=== PATIENT | female | born 1975 | race Caucasian/White ===

== ENCOUNTER → 2016-12-01 | Outpatient (CLI) | payer OTHER | LOC: FIMAGING 15:47 | DX: Z12.31 Encounter for screening mammogram for malignant neoplasm of breast (principal) | CPT/HCPCS: G0202 ==

== ENCOUNTER → 2017-05-27 | Outpatient (CLI) | payer OTHER ==
[~2017-05-27] MED LIST: GADOBUTROL 10 ML VIAL IVP ONE
== END ==
LOC: FIMAGING 11:01
PROVIDERS: ATTEND Internal Medicine
DX: E22.1 Hyperprolactinemia (principal); N91.2 Amenorrhea, unspecified
CPT/HCPCS: A9585

== ENCOUNTER 2018-03-14 11:58 | Emergency (ER) | payer OTHER ==
--- NOTE | 2018-03-14 12:16 | CPEKG ---
Heart Rate: 67 RR Interval: 896 P-R Interval: 176 QRSD Interval: 86 QT Interval: 428 QTC Interval: 452 P [place]: 50 QRS [place]: 40 T Wave [place]: 53 EKG Severity - NORMAL ECG - EKG Impression: SINUS RHYTHM Electronically Signed By: Cooper Payan 14-Mar-2018 14:57:15
--- NOTE | 2018-03-14 12:28 | EDPHY ---
H & P Stated Complaint: cp/back pain Time Seen by Provider: 03/14/18 12:26 - Personal History LMP (Females 10-55): Over 28 Days Ago Current Tetanus Diphtheria and Acellular Pertussis (TDAP): Unsure - Medical/Surgical History Hx Asthma: No Hx Chronic Respiratory Disease: No Hx Diabetes: No Hx Cardiac Disease: No Hx Renal Disease: No Hx Cirrhosis: No Hx Alcoholism: No Hx HIV/AIDS: No Hx Splenectomy or Spleen Trauma: No Other PMH: denies - Social History Smoking Status: Never smoked Constitutional: Initial Vital Signs Temperature (C) 36.4 C 03/14/18 12:00 Heart Rate 75 03/14/18 12:00 Respiratory Rate 17 03/14/18 12:00 Blood Pressure 171/121 H 03/14/18 12:00 O2 Sat (%) 94 03/14/18 12:00 O2 Delivery Mode Room Air Allergies/Adverse Reactions: Penicillins Allergy (Verified 03/14/18 11:59) Hives Home Medications: Medication Instructions Recorded Atenolol 03/14/18 Hydrocodone/APAP 5/325 [P[place]mont 1 - 2 each PO Q4-6PRN PRN #20 tab 03/14/18 5/325] Spironolactone 03/14/18 Wellbutrin 100mg (*) 03/14/18 Zoloft 100mg (*) 03/14/18 Medical Decision Making - Diagnostics Imaging Results: Imaging Impressions Thoracic Spine X-Ray 03/14/18 12:40 Impression: 1. Mild disk space narrowing mid thoracic spine with associated anterior marginal osteophytes and mild accentuation of the anterior kyphosis. Imaging: I viewed and interpreted images myself ED Course/Re-evaluation: CHIEF COMPLAINT: Back pain, chest pain HISTORY OF PRESENT ILLNESS: The patient is a 43 y/o female complaining of sudden on set midscapular back and chest pain today. While getting ready for work today she reached across her body and developed back pain. She initially thought that this pain was due to the twisting. While walking at work, she developed chest pain for 1-2 minutes associated with nausea and feeling mildly short of breath. During the chest pain episode, she had spasmodic back pain and was unable to sit down due to the back pain. Denies history of chest pain or recent cardiac work up. She is borderline diabetic and has borderline high cholesterol. Denies headache, abdominal pain, urinary or bowel complaints, numbness, paresthesias, fever. REVIEW OF SYSTEMS: A 10 point review of systems was performed and is negative with the exception of the elements mentioned in the history of present illness. PHYSICAL EXAM: HR, BP, O2 Sat, RR. Temp noted General Appearance: Alert, well hydrated, appropriate, and non-toxic appearing. Head: Atraumatic without scalp tenderness or obvious injury Eyes: Pupils equal, round, reactive to light and accommodation, EOMI, no trauma , no injection. Ears: Clear bilaterally, no perforation, normal landmarks Nose: Atraumatic, no rhinorrhea, clear. Throat: There is no erythema or exudates, no lesions, normal tonsils, mucus membranes moist. Neck: Supple, 2+ carotid upstroke, nontender, no lymphadenopathy. Respiratory: No retractions, no distress, no wheezes, and no accessory muscle use. Lungs are clear to auscultation bilaterally. Cardiovascular: Regular rate and rhythm, no murmurs, rubs, or gallops. Bilateral carotid, radial, dorsalis pedis, and posterior tibial pulses intact. Good capillary refill all extremities. Gastrointestinal: Abdomen is soft, nontender, non-distended, no masses, no rebound, no guarding, no peritoneal signs. Back: Mid to low scapular back tenderness to palpation Musculoskeletal: Normal active ROM of all extremities, atraumatic. Neurological: Alert, appropriate, and interactive. The patient has normal DTRs and non-focal cranial nerves, motor, sensory, and cerebellar exam. Skin: No rashes, good turgor, no nodules on palpation. Past medical history: Borderline diabetic, borderline high cholesterol, migraines Past surgical history: Denies Family history: Denies Social history: Employed at [employer], lives in [place], [facility] DIAGNOSTICS/PROCEDURES/CRITICAL CARE TIME: EKG: The 12 lead EKG was interpreted by myself as sinus rhythm with a rate of 67. See hard copy and/or "tracemaster" electronic copy for interpretation. T-spine x-ray: Mild disk space narrowing mid thoracic spine with associated anterior marginal osteophytes and mild accentuation of the anterior kyphosis DIFFERENTIAL DIAGNOSIS: The differential diagnosis for the patient's chest pain included but was not limited to myocardial ischemia, pulmonary embolus, chest wall pain, pleural inflammation, and pulmonary infectious causes. The differential diagnosis for the patient's back pain included but was not limited to musculoskeletal pain, epidural abscess, herniated disk, spinal fracture, and intra-abdominal causes including urinary system. MEDICAL DECISION MAKING: The patient is a 43 y/o female complaining of sudden on set midscapular back and a short episode of chest pain today. On exam she has mid to low scapular back tenderness to palpation and a normal cardiac exam. Labs, EKG, and T-spine x -ray ordered; 30mg IV Toradol administered. 1214: I interpreted EKG as sinus rhythm with a rate of 67. 1330: Patient has normal laboratory findings. Her t-spine x-ray reveals mild disk space narrowing. 1400: Reassessed patient and discussed laboratory and imaging findings. I have advised her to follow up with Dr. Boswell, neurosurgeon, and take P[place]mont for pain. Return precautions provided; patient is comfortable with this plan. - Data Points Laboratory Results: Laboratory Results 03/14/18 12:28 03/14/18 12:28 03/14/18 03/14/18 03/14/18 12:52 12:28 12:28 WBC RBC Hgb Hct MCV MCH MCHC RDW Plt Count MPV Neut % (Auto) Lymph % (Auto) Mills % (Auto) Eos % (Auto) Baso % (Auto) Nucleat RBC Rel Count Absolute Neuts (auto) Absolute Lymphs (auto) Absolute Monos (auto) Absolute Eos (auto) Absolute Basos (auto) Absolute Nucleated RBC Immature Gran % Immature Gran # D-Dimer 0.28 ug/mLFEU ug/mLFEU (0.00-0.50) Sodium 141 mEq/L mEq/L (135-145) Potassium 4.7 mEq/L mEq/L (3.3-5.0) Chloride 107 mEq/L mEq/L (97-110) Carbon Dioxide 21 mEq/l L mEq/l (22-31) Anion Gap 13 mEq/L mEq/L (8-16) BUN 14 mg/dL mg/dL (7-23) Creatinine 0.9 mg/dL mg/dL (0.6-1.0) Estimated GFR > 60 Glucose 100 mg/dL mg/dL (70-100) Calcium 9.7 mg/dL mg/dL (8.5-10.4) POC Troponin I 0.00 ng/mL ng/mL (0.00-0.08) 03/14/18 12:28 WBC 10.54 10^3/uL H 10^3/uL (3.80-9.50) RBC 5.04 10^6/uL 10^6/uL (4.18-5.33) Hgb 14.6 g/dL g/dL (12.6-16.3) Hct 44.8 % % (38.0-47.0) MCV 88.9 fL fL (81.5-99.8) MCH 29.0 pg pg (27.9-34.1) MCHC 32.6 g/dL g/dL (32.4-36.7) RDW 14.1 % % (11.5-15.2) Plt Count 386 10^3/uL 10^3/uL (150-400) MPV 9.1 fL fL (8.7-11.7) Neut % (Auto) 63.5 % % (39.3-74.2) Lymph % (Auto) 27.0 % % (15.0-45.0) Mills % (Auto) 5.0 % % (4.5-13.0) Eos % (Auto) 2.8 % % (0.6-7.6) Baso % (Auto) 0.6 % % (0.3-1.7) Nucleat RBC Rel Count 0.0 % % (0.0-0.2) Absolute Neuts (auto) 6.69 10^3/uL H 10^3/uL (1.70-6.50) Absolute Lymphs (auto) 2.85 10^3/uL 10^3/uL (1.00-3.00) Absolute Monos (auto) 0.53 10^3/uL 10^3/uL (0.30-0.80) Absolute Eos (auto) 0.29 10^3/uL 10^3/uL (0.03-0.40) Absolute Basos (auto) 0.06 10^3/uL 10^3/uL (0.02-0.10) Absolute Nucleated RBC 0.00 10^3/uL 10^3/uL (0-0.01) Immature Gran % 1.1 % % (0.0-1.1) Immature Gran # 0.12 10^3/uL H 10^3/uL (0.00-0.10) D-Dimer Sodium Potassium Chloride Carbon Dioxide Anion Gap BUN Creatinine Estimated GFR Glucose Calcium POC Troponin I Medications Given: Discontinued Medications Ketorolac Tromethamine (Toradol) 30 mg IVP EDNOW ONE Stop: 03/14/18 12:43 Last Admin: 03/14/18 12:44 Dose: 30 mg Point of Care Test Results: Chemistry 03/14/18 12:52 POC Troponin I 0.00 ng/mL ng/mL (0.00-0.08) Departure - Departure Disposition: Home, Routine, Self-Care Clinical Impression: Back pain Qualifiers: Back pain location: thoracic back pain Chronicity: acute Back pain laterality: midline Qualified Code(s): M54.6 - Pain in thoracic spine Condition: Good Instructions: Back Pain (ED) Additional Instructions: 1. Followup with a casework specialist within one week, you have been referred to Dr. Boswell. 2. Return to the emergency department for severe pain, fever, numbness, difficulty walking, change in location or nature of pain or other concerns. 3. Use ibuprofen and Tylenol as directed. Try using a heating pad. 4. Take P[place]mont as prescribed. Referrals: Antonio Bailey MD [Primary Care Provider] - As per Instructions Cooper Boswell MD [Medical Doctor] - As per Instructions Prescriptions: Hydrocodone/APAP 5/325 [[place] 5/325] 1 - 2 each PO Q4-6PRN PRN #20 tab PRN Reason: Pain, Moderate Report Scribed for: Cooper Payan Report Scribed by: Anali Gloria Date of Report: 03/14/18 Time of Report: 12:33
[2018-03-14] MEDS ORDERED: KETOROLAC 30 MG/1 ML SDV IVP ONE (12:42)
[2018-03-14] MEDS ORDERED: KETOROLAC 30 MG/1 ML SDV ONE (12:43)
[2018-03-14 13:00] LABS: PLATELET COUNT 386 10^3/uL (150-400)
[2018-03-14 14:18] VITALS: BP 126/82
== END 2018-03-14 14:25 | disposition home or self-care (01) ==
LOC: SUPCPDRO 11:58
DX: M54.6 Pain in thoracic spine (principal)
CPT/HCPCS: 84484-PO; 96374; J1885

== ENCOUNTER → 2018-07-31 | Outpatient (CLI) | payer OTHER | LOC: FIMAGING 10:19 | PROVIDERS: ATTEND Obstetrics & Gynecology | DX: Z12.31 Encounter for screening mammogram for malignant neoplasm of breast (principal) ==